=== PATIENT | female | born 1985 | race Caucasian/White ===

== ENCOUNTER → 2016-11-22 | Outpatient (CLI) | payer BC ==
[~2016-11-22] MED LIST: CETI10TA84 PO; CHOL2000 PO; LPT10 PO; LUBI8CAP4 PO; LXP/20 PO; MIRT15TA3 PO; OXYC5TAB PO
== END | disposition home or self-care (01) ==
LOC: C.LABPVFM 11:58
PROVIDERS: ATTEND Nurse Practitioner Family
DX: F41.8 Other specified anxiety disorders (principal)

== ENCOUNTER → 2017-03-29 | Outpatient (CLI) | payer BC ==
[2017-03-29 13:19] LABS: BLOOD UREA NITROGEN 17 mg/dl (7-18); BUN/CREATININE RATIO 21.6 (10-20); CARBON DIOXIDE 24 mmol/L (21-32); CHLORIDE 109 mmol/L (98-107); CHOLESTEROL 239 mg/dl (0-200); CREATININE 0.77 mg/dl (0.60-1.20); GLUCOSE 85 mg/dl (70-99); POTASSIUM 4.1 mmol/L (3.5-5.1); SODIUM 140 mmol/L (136-145)
[2017-03-29 13:24] LABS: CHOLESTEROL/HDL RATIO 3.7; HDL CHOLESTEROL 64 mg/dl; LDL CHOLESTEROL CALCULATED 159 mg/dl; PROSTATE SPECIFIC ANTIGEN < 0.010 ng/ml (0.000-4.000); TRIGLYCERIDES 82 mg/dl (0-150); VERY LOW DENSITY LIPOPROT CALC 16 mg/dl
== END | disposition home or self-care (01) ==
LOC: C.LABPVFM 08:21
PROVIDERS: ATTEND Family Medicine
DX: Z13.1 Encounter for screening for diabetes mellitus (principal); Z13.220 Encounter for screening for lipoid disorders

== ENCOUNTER 2017-04-04 17:08 | Emergency (ER) | payer OTHER, BC ==
[~2017-04-04] VITALS: Ht 170.2 cm; Wt 68.0 kg
[~2017-04-04 17:08] MED LIST changes: -CETI10TA84 PO; -CHOL2000 PO; -LPT10 PO; -LUBI8CAP4 PO; -LXP/20 PO; -MIRT15TA3 PO
[2017-04-04 17:15] VITALS: TEMP 37.2; Ht 170.2 cm; Wt 68.0 kg
[2017-04-04] MEDS ORDERED: OPTIRAY 320 IV PRN (17:30)
[2017-04-04] MEDS ORDERED: CETI10TA84 PO (17:49)
[2017-04-04] MEDS ORDERED: LXP/20 PO (17:49)
[2017-04-04 18:05] LABS: ISTAT CREATININE 0.7 mg/dl (0.6-1.3); ISTAT HEMOGLOBIN 12.9 g/dl (12.0-16.0); ISTAT IONIZED CALCIUM 1.24 mmol/l (1.12-1.32)
--- NOTE | 2017-04-04 18:27 | DIAGNOSTIC IMAGING REPORT ---
CT SCAN OF THE ABDOMEN AND PELVIS WITH IV CONTRAST CLINICAL HISTORY: Trauma. Abdominal injury. COMPARISON STUDY: No priors. TECHNIQUE: Following the IV administration of 120 cc of Optiray 320, CT scan of the abdomen and pelvis is performed from the lung bases to the proximal femora. Images are reviewed in the axial, sagittal, and coronal planes. IV contrast was administered without complication. Automated dose control exposure was utilized. CT DOSE: 325.48 mGy.cm FINDINGS: Lung bases: The heart is normal in size and without pericardial effusion. The lung bases are clear noting minimal dependent hypoventilatory change. Liver: The contrast-enhanced liver is enlarged measuring 18.6 cm in length. The liver is normal in contour and attenuation. There is no intrahepatic biliary ductal dilatation. The hepatic veins and portal veins are patent. Gallbladder: Contracted. Spleen: Normal in size and attenuation. Pancreas: Unremarkable. Adrenal glands: Unremarkable. Kidneys: The contrast enhanced kidneys are normal in size and without hydronephrosis. The kidneys enhance symmetrically. Abdominal vasculature: The abdominal aorta is normal in course and caliber. Bowel: The small bowel and colon are normal in course and caliber. The appendix is well-visualized and normal. Peritoneum: There is no intraperitoneal free air or abdominal ascites. There is a small fat-containing umbilical hernia. Lymphadenopathy: None. Pelvic viscera: The bladder, uterus, and adnexa are normal as visualized. There are bilateral ovarian follicles. A dominant follicle in the left measures up to 2.2 cm. Trace free fluid is seen in the cul-de-sac. Skeletal structures: No fracture is seen. No lytic or blastic lesions are identified. IMPRESSION: 1. There is no evidence of solid organ injury in the abdomen or pelvis. 2. No acute infectious or inflammatory findings are identified in the abdomen or pelvis. 3. There is trace and likely physiologic free fluid in the cul-de-sac. 4. Mild hepatomegaly. Electronically signed by: Sunil Ovalle M.D. 04/04/2017 6:26 PM Dictated Date/Time: 04/04/2017 6:20 PM
[2017-04-04 18:47] VITALS: BP 107/76; PULSE 82; O2SAT 98
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
[2017-05-30] MEDS ORDERED: CHOL2000 PO (17:49)
== END 2017-04-04 18:55 | disposition home or self-care (01) ==
LOC: EDBD 17:08 → C.EDA 17:09
DX: R10.13 Epigastric pain (principal); J45.909 Unspecified asthma, uncomplicated; Z82.49 Family history of ischemic heart disease and other diseases of the circulatory system; Z87.891 Personal history of nicotine dependence

== ENCOUNTER → 2017-04-23 | Outpatient (CLI) | payer BC, OTHER ==
[~2017-04-23] MED LIST changes: +CETI10TA84 PO; +CHOL2000 PO; +LPT10 PO; +LUBI8CAP4 PO; +LXP/20 PO; +MIRT15TA3 PO; -OXYC5TAB PO
[2017-05-02 19:00] LABS: IGA SERUM 197 mg/dL (81-463); TIS TRANS IGA 46 U/mL (<4)
[2017-05-05 14:47] LABS: ENDOMY TIT(REFLEX DO NOT ORDER 1:20 (<1:5); ENDOMYSIAL IGA AB TC 15064 Positive (Negative)
== END | disposition home or self-care (01) ==
LOC: C.LAB1850 16:15
PROVIDERS: ATTEND Registered Nurse
DX: R14.0 Abdominal distension (gaseous) (principal)

== ENCOUNTER 2017-05-30 19:08 | Emergency (ER) | payer BC ==
[~2017-05-30] VITALS: Ht 170.2 cm; Wt 72.0 kg
[~2017-05-30 19:08] MED LIST changes: -LPT10 PO; -LUBI8CAP4 PO; -MIRT15TA3 PO
[2017-05-30 19:13] VITALS: TEMP 36.8; Ht 170.2 cm; Wt 72.0 kg
--- NOTE | 2017-05-30 20:34 | DIAGNOSTIC IMAGING REPORT ---
RIGHT KNEE 3 VIEWS HISTORY: 31 years-old Female acute right knee pain status post injury COMPARISON: None available TECHNIQUE: Frontal, crosstable lateral and sunrise views of the right knee FINDINGS: There is a small joint effusion present. There is no acute fracture, dislocation or significant degenerative changes. There are probable small subcortical cystic changes within the patellofemoral joint. There is mild soft tissue swelling about the knee. IMPRESSION: 1. Mild soft tissue swelling about the knee without acute fracture or dislocation. 2. Small joint effusion. The above report was generated using voice recognition software. It may contain grammatical, syntax or spelling errors. Electronically signed by: Devon Price M.D. 05/30/2017 8:32 PM Dictated Date/Time: 05/30/2017 8:31 PM
--- NOTE | 2017-05-30 20:47 | DIAGNOSTIC IMAGING REPORT ---
BILATERAL LOWER EXTREMITY VENOUS DOPPLER HISTORY: R leg pain no injury Right COMPARISON STUDY: None. FINDINGS: There is normal compressibility, flow, and augmentation within the right lower extremity deep venous system. IMPRESSION: No DVT within the right lower extremity. Electronically signed by: Devon Price M.D. 05/30/2017 8:46 PM Dictated Date/Time: 05/30/2017 8:45 PM
[2017-05-30] MEDS ORDERED: MIRT15TA3 PO (20:51)
[2017-05-30] MEDS ORDERED: LPT10 PO (20:51)
[2017-05-30] MEDS ORDERED: LUBI8CAP4 PO (20:51)
[2017-05-30 20:59] VITALS: BP 110/72; PULSE 71; O2SAT 99
--- NOTE | 2017-05-30 21:05 | EMERGENCY ROOM VISIT NOTE ---
History First contact with patient: 19:30 Chief Complaint: LEG PAIN,LEG INJURY Stated Complaint: R LEG HURT UNABLE TO PUT PRESSURE ON History of Present Illness The patient is a 31 year old female who presents to the Emergency Room via private vehicle with complaints of "right like her any elbow pressure on it". The patient states that this afternoon she was walking, at work and developed right lateral/posterior knee pain that radiates midway down the lateral calf. She also has the feeling that her knee is going to give out. She states she feels it is unstable. She denies any recent injury or trauma to the area but notes that she has had surgeries in the past. She states that she has had 4 total. Most recent being in 2003 and 2004. She states it was secondary to chronic subluxations of the knee. She states that it appears that of the surgeries have helped. She denies any numbness or tingling in the region of pain. She denies any hip, thigh, anterior leg, ankle or foot pain. Range of motion is limited due to pain. No severe pain is when she extends her knee. She rates the pain as a 5/10. Denies chance of . Review of Systems A complete 6-point Review of Systems was discussed with the patient, with pertinent positives and negatives listed in the History of Present Illness. All remaining Review of Systems questions can be considered negative unless otherwise specified. Past Medical/Surgical History Medical Problems: (1) Asthma (2) Closed head injury (3) Concussion (4) Labor without complication (5) Miscarriage Surgical Problems: (1) H/O knee surgery Family History Cancer Heart disease Hypertension Social History Smoking Status: Former Smoker Alcohol Use: none Marital Status: Housing Status: lives with family Occupation Status: employed Current/Historical Medications Scheduled Atorvastatin (Atorvastatin Calcium), 10 MG PO HS Cholecalciferol (Vitamin D3), 2,000 INTER.UNIT PO DAILY Lubiprostone (Amitiza), 160 MCG PO DAILY Mirtazapine (Remeron), 15 MG PO HS Physical Exam Vital Signs Date Time Temp Pulse Resp B/P (MAP) Pulse Ox O2 Delivery O2 Flow Rate FiO2 05/30/17 20:59 71 16 110/72 99 05/30/17 19:13 36.8 102 18 107/74 97 Room Air Physical Exam VITAL SIGNS - Vital signs and nursing notes were reviewed. Afebrile, normotensive, tachycardic at a rate of 102 bpm, and is saturating well on room air at 97%. GENERAL -31-year-old female appearing her stated age who is in no acute distress. Communicates well with provider and answers questions appropriately. SKIN - Without rashes. No petechial rashes. HEAD - NC/AT. EXTREMITIES - No clubbing or peripheral cyanosis. No pretibial edema present. There is tenderness to palpation overlying the posterior knee. Limited extension and flexion secondary to pain. There is no bony point tenderness. No palpable cord. She is neurovascularly intact in this region. Medical Decision & Procedures ER Provider Diagnostic Interpretation: BILATERAL LOWER EXTREMITY VENOUS DOPPLER HISTORY: R leg pain no injury Right COMPARISON STUDY: None. FINDINGS: There is normal compressibility, flow, and augmentation within the right lower extremity deep venous system. IMPRESSION: No DVT within the right lower extremity. Electronically signed by: Devon Price M.D. 05/30/2017 8:46 PM Dictated Date/Time: 05/30/2017 8:45 PM RIGHT KNEE 3 VIEWS HISTORY: 31 years-old Female acute right knee pain status post injury COMPARISON: None available TECHNIQUE: Frontal, crosstable lateral and sunrise views of the right knee FINDINGS: There is a small joint effusion present. There is no acute fracture, dislocation or significant degenerative changes. There are probable small subcortical cystic changes within the patellofemoral joint. There is mild soft tissue swelling about the knee. IMPRESSION: 1. Mild soft tissue swelling about the knee without acute fracture or dislocation. 2. Small joint effusion. The above report was generated using voice recognition software. It may contain grammatical, syntax or spelling errors. Electronically signed by: Devon Price M.D. 05/30/2017 8:32 PM Dictated Date/Time: 05/30/2017 8:31 PM Medical Decision Patient was seen and evaluated as above. After obtaining a thorough history and physical examination radiographs were obtained an ultrasound was also obtained. Negative for DVT. No acute fracture or dislocation. I suspect the patient likely has ligamentous instability secondary to her chronic knee related issues as well as previous surgeries. At this time it appears appropriate to stabilize her with a knee immobilizer, and make her nonweightbearing with crutches. She is to follow-up with orthopedics. She is to return with worsening. She was educated upon worrisome symptoms which to return, had questions prior to discharge, and was discharged home in good condition. In the evaluation and treatment of this patient, the following differential diagnoses were considered: Patellar Fracture, Tibial Plateau Fracture, Distal Femur Fracture, ACL Injury, PCL Injury, Collateral Ligament Injury, Pes Anserine Bursitis, Maisonneuve Fracture. Impression Primary Impression: Leg pain, right Departure Information Dispostion Home / Self-Care Condition GOOD Referrals Ana Pryor (PCP) Juan Francisco Fish MD Patient Instructions My [facility] Additional Instructions You have been treated in the Emergency Department for Knee Pain. For pain control, you can use the following mrck-eny-rnihnhe medicines: - Regular strength (325mg/tab) Tylenol (acetaminophen) 2 tabs every 4-6 hours as needed. Do not exceed 12 tablets in a 24 hour period. Avoid taking more than 3 grams (3000 mg) of Tylenol per day. This includes any other sources of acetaminophen you may take on a regular basis. - Regular strength (200 mg/tab) Advil (ibuprofen) 1-2 tabs every 4-6 hours as needed. Do not exceed a dose of 3200 mg per day. If this is a recent injury (<24 hrs), ice can be applied to the area of pain for the first 3 days to help decrease pain and inflammation. Ice massages can be performed by freezing water in a paper cup, peeling back the cup to expose the ice and then massaging over the affected area. You have been provided the number for an Orthopaedic Surgeon. You should call this number as soon as possible to establish a follow-up visit from today's Emergency Department visit. Keep the knee brace in place until cleared by Orthopedics. Use the crutches you have been provided to keep ALL weight off of the knee until weight bearing is tolerable. Return to the Emergency Department if your current symptoms worsen despite treatment course outlined above. Please return to the emergency department with any new/symptoms.
== END 2017-05-30 21:23 | disposition home or self-care (01) ==
LOC: C.EDB 19:09 → C.EDD 21:23
DX: M79.661 Pain in right lower leg (principal); J45.909 Unspecified asthma, uncomplicated; Z87.891 Personal history of nicotine dependence; Z82.49 Family history of ischemic heart disease and other diseases of the circulatory system

== ENCOUNTER → 2017-06-20 | Day surgery (SDC) | payer BC ==
[2017-06-17 09:47] VITALS: Ht 170.2 cm; Wt 73.2 kg
[~2017-06-20] VITALS: Ht 170.2 cm; Wt 73.2 kg
[~2017-06-20] MED LIST changes: -CETI10TA84 PO; +LIDOCAINE HCL 2% 2 ML VIAL (20MG/ML) ONE; +LPT10 PO; +LUBI8CAP4 PO; -LXP/20 PO; +MIRT15TA3 PO; +PROPOFOL IV EMULSION 10 MG/ML 20 ML VIAL IV ONE
--- NOTE | 2017-06-20 11:34 | Endo History and Physical ---
History & Physical Date of Service: Jun 20, 2017. Chief Complaint: Abdominal bloating Referring Physician: Dr. Pryor History of Present Illness 31 yo CF who presents for EGD secondary to abdominal bloating. Past Surgical History Hx Cardiac Surgery: No Hx Internal Defibrillator: No Hx Pacemaker: No Hx Abdominal Surgery: No Hx of Implantable Prosthesis: No Hx Post-Op Nausea and Vomiting: No Hx Cancer Surgery: No Hx Thoracic Surgery: No Hx Orthopedic: Yes (RT KNEE SURGERY X4) Hx Urinary Tract Surgery: No Family History None Social History Smoking Status: Never Smoker Hx Substance Use: No Hx Alcohol Use: No Allergies Coded Allergies: No Known Allergies (Unverified , 06/17/17) Current Medications Reported Home Medications Medications Dose Route/Sig Max Daily Dose Days Date Category Remeron (Mirtazapine) 15 Mg Tab 15 Mg PO HS 05/30/17 Reported Atorvastatin Calcium (Atorvastatin) 10 Mg Tab 10 Mg PO HS 05/30/17 Reported Amitiza (Lubiprostone) 8 Mcg Cap 16 Mcg PO BID 05/30/17 Reported Vitamin D3 (Cholecalciferol) 2,000 Unit Cap 2,000 Inter.unit PO QAM 04/04/17 Reported Vital Signs Weight (Kilograms): 73.18 Height (Feet): 5 Height (Inches): 7 Physical Exam General Appearance: WD/WN, no apparent distress Respiratory/Chest: Auscultation: breath sounds normal Cardiovascular: Heart Auscultation: RRR Abdomen: Bowel Sounds: normal Inspection & Palpation: soft, non-distended, no tenderness, guarding & rebound Assessment and Plan Assessment: 31 yo CF who presents for EGD secondary to abdominal bloating. Plan: Proceed with EGD.
--- NOTE | 2017-06-20 12:38 | GI REPORT ---
Procedure Date: 06/20/2017 12:24 PM Procedure: Upper GI endoscopy Indications: Positive celiac serologies Medicines: Monitored Anesthesia Care Complications: No immediate complications. Estimated Blood Loss: Estimated blood loss: none. Procedure: Pre-Anesthesia Assessment: - Prior to the procedure, a History and Physical was performed, and patient medications and allergies were reviewed. The patient's tolerance of previous anesthesia was also reviewed. The risks and benefits of the procedure and the sedation options and risks were discussed with the patient. All questions were answered, and informed consent was obtained. Prior Anticoagulants: The patient has taken no previous anticoagulant or antiplatelet agents. ASA Grade Assessment: II - A patient with mild systemic disease. After reviewing the risks and benefits, the patient was deemed in satisfactory condition to undergo the procedure. After obtaining informed consent, the endoscope was passed under direct vision. Throughout the procedure, the patient's blood pressure, pulse, and oxygen saturations were monitored continuously. The scope was introduced through the mouth, and advanced to the second part of duodenum. The upper GI endoscopy was accomplished without difficulty. The patient tolerated the procedure well. Findings: The esophagus was normal. The stomach was normal. The 2nd part of the duodenum was normal. Biopsies for histology were taken with a cold forceps for evaluation of celiac disease. Impression: - Normal esophagus. - Normal stomach. - Normal 2nd part of the duodenum. Biopsied. Recommendation: - Resume previous diet. - Continue present medications. - Await pathology results. - Return to primary care physician as previously scheduled. Wiliam Mark, DO 06/20/2017 12:37:36 PM This report has been signed electronically. Note Initiated On: 06/20/2017 12:24 PM I attest to the content of the Intraoperative Record and orders documented therein, exceptions below
[2017-06-20 13:08] VITALS: BP 105/75; PULSE 74; O2SAT 100
--- NOTE | 2017-06-20 13:17 | Anesthesiology Progress Note ---
Anesthesia Post Op Note Date & Time Jun 20, 2017 at 13:17 Vital Signs Pain Intensity: 0 Vital Signs Past 12 Hours Date Time Temp Pulse Resp B/P (MAP) Pulse Ox O2 Delivery O2 Flow Rate FiO2 06/20/17 13:08 74 18 105/75 (85) 100 Room Air 06/20/17 12:53 79 18 104/71 (82) 97 Room Air 06/20/17 12:38 78 18 95/56 (69) 98 Room Air 06/20/17 11:35 36.5 89 18 106/68 (81) 99 Room Air Notes Mental Status: alert / awake / arousable, participated in evaluation Pt Amnestic to Procedure: Yes Nausea / Vomiting: adequately controlled Pain: adequately controlled Airway Patency, RR, SpO2: stable & adequate BP & HR: stable & adequate Hydration State: stable & adequate Anesthetic Complications: no major complications apparent
--- NOTE | 2017-06-20 13:37 | Discharge Instructions ---
Endoscopy Patient Instructions Date / Procedure(s) Performed Jun 20, 2017. EGD Allergy Information Coded Allergies: No Known Allergies (Unverified , 06/17/17) Discharge Date / Findings Jun 20, 2017. Biopsies of duodenum Medication Instructions OK to resume all medications today as prescribed Reported Home Medications Medications Dose Route/Sig Max Daily Dose Days Date Category Remeron (Mirtazapine) 15 Mg Tab 15 Mg PO HS 05/30/17 Reported Atorvastatin Calcium (Atorvastatin) 10 Mg Tab 10 Mg PO HS 05/30/17 Reported Amitiza (Lubiprostone) 8 Mcg Cap 16 Mcg PO BID 05/30/17 Reported Vitamin D3 (Cholecalciferol) 2,000 Unit Cap 2,000 Inter.unit PO QAM 04/04/17 Reported Provider Instructions Activity Restrictions - No exercising or heavy lifting for 24 hours. - Do not drink alcohol the day of the procedure. - Do not drive a car or operate machinery until the day after the procedure. - Do not make any important decisions or sign important papers in 24 hours after the procedure. Following Day: - Return to full activity which may include returning to work/school. Diet Start your diet with liquids and light foods (jello, soup, juice, toast). Then eat your usual diet if not nauseated. Treatment For Common After Affects For mild abdominal pain, bloating, or excessive gas: - Rest - Eat lightly - Lie on right side Follow-Up Information Follow-up with Ana TATE as scheduled Anesthesia Information What You Should Know You have had a procedure that required some medicine to reduce anxiety and discomfort. This treatment is called moderate sedation. After receiving the treatment, you may be sleepy, but you will be able to breathe on your own. The effects of the treatment may last for several hours. Follow these instructions along with Activity/Diet recommendations noted above: * Do NOT do anything where dizziness or clumsiness would be dangerous. * Rest quietly at home today, then you can be up and about tomorrow. * Have a responsible person stay with you the rest of today. * You may have had an I.V. today. If so, you may take the dressing off later today. Recommendations Call your doctor if: * Trouble breathing * Continuous vomiting for more than 24 hours * Temperature above 101 degrees * Severe abdominal pain or bloating * Pain not relieved by pain medicine ordered * There is increased drainage or redness from any incision * A large amount of rectal bleeding greater than 2-3 tablespoons. (If you had a polyp/s removed or have hemorrhoids, a small amount of blood - from the rectum is to be expected.) * You have any unanswered questions or concerns. IN THE EVENT OF A SERIOUS EMERGENCY, GO TO THE NEAREST EMERGENCY ROOM Your discharge instructions were prepared by provider Wiliam Mark. Patient Instructions Signature Page Carmelita Muniz Patient (or Guardian) Signature/Date: I have read and understand the instructions given to me by my caregivers. Caregiver/RN/Doctor Signature/Date: The above-named patient and/or guardian has received patient instructions on this date. + Original Patient Signature Page (only) stays with chart. Please make copy for patient.
== END | disposition home or self-care (01) ==
LOC: C.GI 11:17
PROVIDERS: ATTEND Internal Medicine
DX: R14.0 Abdominal distension (gaseous) (principal); K90.89 Other intestinal malabsorption

== ENCOUNTER → 2017-09-12 | Outpatient (CLI) | payer BC ==
[~2017-09-12] MED LIST changes: -LIDOCAINE HCL 2% 2 ML VIAL (20MG/ML) ONE; -PROPOFOL IV EMULSION 10 MG/ML 20 ML VIAL IV ONE
== END | disposition home or self-care (01) ==
LOC: C.LABPVFM 09:25
PROVIDERS: ATTEND Family Medicine Adult Medicine
DX: Z20.818 Contact with and (suspected) exposure to other bacterial communicable diseases (principal); J02.9 Acute pharyngitis, unspecified